=== PATIENT | female | born 1985 ===

== ENCOUNTER 2017-12-03 10:55 | Emergency (ER) | payer SELFPAY ==
[2017-12-03 11:14] VITALS: BP 129/85
--- NOTE | 2017-12-03 12:00 | UC ---
Skin Complaint HPI - HPI Summary HPI Summary: She is a 32-year-old female who arrived here from [facility] 3 weeks ago. She will be at [facility] for 6 months. She states that [place] left [place]. She has had a difficult time making the transition here. She states that she is terrified of trees. [place] [address] He has had nightmares about trees and has not been sleeping well. Her arrival here she has had a constant band like headache. She has had no photophobia. Had no nausea or vomiting. The headache waxes and wanes but does not go away completely. He is not taken any medication for her headache. She has had a long history of acne but it has worsened during her 3 weeks here. Also since here she has noticed dramatic hair loss. She states that over the past 2 years she has had a 30 pound weight gain. She had her thyroid function tested about a year and a half ago. She reports it was normal. She was seen by corn shucker in [facility] for abnormal periods. Diagnosed with polycystic ovarian syndrome. At one point she did take metformin. - History of Current Complaint Chief Complaint: UCGeneralIllness Time Seen by Provider: 12/03/17 11:32 Stated Complaint: HAIR AND ACNE COMPLAINT Hx Obtained From: Patient Hx Last Menstrual Period: 11/02/17 Onset/Duration: Gradual Onset, Lasting Weeks Timing: Constant Onset Severity: Mild Current Severity: Mild Pain Intensity: 4 - BUTLER Pain Scale Used: 0-10 Numeric Location: Face Aggravating Factor(s): Nothing Alleviating Factor(s): Nothing - Allergy/Home Medications Allergies/Adverse Reactions: Allergies Allergy/AdvReac Type Severity Reaction Status Date / Time No Known Allergies Allergy Verified 12/03/17 12:03 Review of Systems Constitutional: Other - wt gain Skin: Other - acne Eyes: Other - trouble focus at times ENT: Negative Respiratory: Negative Cardiovascular: Negative Gastrointestinal: Negative Genitourinary: Negative Motor: Negative Neurovascular: Negative Musculoskeletal: Negative Neurological: Headache Is Patient Immunocompromised?: No All Other Systems Reviewed And Are Negative: Yes PMH/Surg Hx/FS Hx/Imm Hx Previously Healthy: Yes Other GI/ History: PCOS - Surgical History Surgical History: None - Family History Known Family History: Positive: Hypertension - Social History Alcohol Use: None Substance Use Type: None Smoking Status (MU): Never Smoked Tobacco Physical Exam Triage Information Reviewed: Yes Appearance: Well-Appearing, No Pain Distress, Well-Nourished Vital Signs: Initial Vital Signs Temp 99 F 12/03/17 11:11 Pulse 81 12/03/17 11:11 Resp 18 12/03/17 11:11 BP 129/85 12/03/17 11:11 Pulse Ox 100 12/03/17 11:11 Vital Signs Reviewed: Yes Eye Exam: Normal Eyes: Positive: Conjunctiva Clear, Other: - eomi/perrl, fundi benign, no proptosis ENT Exam: Normal ENT: Positive: Hearing grossly normal. Negative: Nasal congestion, Nasal drainage, Trismus, Muffled voice, Sinus tenderness Dental Exam: Normal Neck: Positive: Supple, Nontender, No Lymphadenopathy, Other: - ? thyromegaly Respiratory: Positive: Lungs clear, Normal breath sounds, No respiratory distress Cardiovascular: Positive: RRR, No Murmur, Pulses Normal Musculoskeletal: Positive: ROM Intact, No Edema Neurological: Positive: Alert, Other: - cn2-12 intact, strenght 5/5, +1 knee jerks, normal gait Psychological Exam: Normal Skin Exam: Other - few papule on face/no pustule, very thin hair katrina vtx, hair gooden Course/Dx - Diagnoses Provider Diagnoses: PCOS. hair loss/wt gain and acne of uncertain cause Discharge - Sign-Out/Discharge Documenting (check all that apply): Discharge/Admit/Transfer - Discharge Plan Condition: Stable Disposition: HOME Prescriptions: Ibuprofen TAB* [Motrin TAB*] 600 mg PO QID #40 tab Patient Education Materials: Tension Headache (ED), Polycystic Ovarian Syndrome (ED) Referrals: [facility] [place] [facility]FERRAL [Outside] (call this number for evaluation of hairloss/ acne and wt gain) Heriberto Tobar MD [Medical Doctor] - As Soon As Possible (for evaluation and treatment of polycystic ovariona syndrome) Additional Instructions: recheck for new or worsening symptoms I think you need blood work to evaluate your symptoms Please call the number to get up local MDs to evaluate you - Billing Disposition and Condition Condition: STABLE Disposition: Home
== END 2017-12-03 12:11 | disposition home or self-care (01) ==
LOC: UCEAST 10:55
DX: L65.9 Nonscarring hair loss, unspecified (principal); E28.2 Polycystic ovarian syndrome; R63.5 Abnormal weight gain; L70.9 Acne, unspecified
CPT/HCPCS: 99202; G0463

== ENCOUNTER 2018-02-19 10:33 | Emergency (ER) | payer BC, MEDICAID ==
[2018-02-19 11:04] VITALS: BP 119/75
--- NOTE | 2018-02-19 11:38 | UC ---
HPI Febrile Illness - HPI Summary HPI Summary: This patient is a 32 year old F presenting to [facility] with a chief complaint of an intermittent subjective fever for that last 2 weeks. She states that she believes it is higher at night and determines that she is febrile by touching her skin, because she does not have a thermometer. The patient rates the pain 0/ 10 in severity. Patient reports fatigue, nausea, constipation, rectal bleeding after straining to have BMs. Pt denies dysuria, hematuria, adominal pain. Patient denies blood in the urine, vomiting, ear pain, and nasal congestion.. She has been taking Tylenol one pill twice a day for the fever but does not believe it is helping. No antipyretic tday. She is also taking milk of magnesia for constipation with relief of substance, but states once she stops taking it the constipation returns. Pt is here for 6 months - state does not have a PCP. Pt states her diet as been different since she has been there, drink less water , and attributes her constipation to this. last BM this morning after taking laxative yesterday. Patients medications reviewed this visit. NDKA - History of Current Complaint Chief Complaint: UCGeneralIllness Time Seen by Provider: 02/19/18 11:25 Hx Obtained From: Patient Hx Last Menstrual Period: states has been abnormal recently 01/26/18 Onset/Duration: Started Weeks Ago - 2, Still Present Timing: Intermittent Initial Severity: Mild Current Severity: None Pain Intensity: 0 Pain Scale Used: 0-10 Numeric Associated Signs and Symptoms: Other: - fatigue, photophobia, nausea, constipation, rectal bleeding after straining to have BMs, dysuria, rectal rash , and trouble seeing at a distan - Allergy/Home Medications Allergies/Adverse Reactions: Allergies Allergy/AdvReac Type Severity Reaction Status Date / Time No Known Allergies Allergy Verified 02/19/18 10:52 Home Medications: Home Medications Acetaminophen [Acetaminophen Extra Strength] 500 mg PO BID 02/19/18 [History Confirmed 02/19/18] Magnesium Hydroxide LIQ* [Milk of Magnesia LIQ*] 30 ml PO WEEKLY 02/19/18 [ History Confirmed 02/19/18] metFORMIN* [Glucophage 500 MG TAB *] 500 mg PO DAILY 02/19/18 [History] PMH/Surg Hx/FS Hx/Imm Hx Previously Healthy: Yes GI/ History: Other Other GI/ History: PCOS Neurological History: Other Other Neurological History: Chronic back pain - Surgical History Surgical History: None - Family History Known Family History: Positive: Hypertension - Social History Occupation: Student Alcohol Use: None Substance Use Type: None Smoking Status (MU): Never Smoked Tobacco Review of Systems Constitutional: Fever - tactile, Fatigue Skin: Rash - rectal Eyes: Other Gastrointestinal: Nausea, Other - constipation and rectal bleeding after straining to have BMs on toilet tissue only Genitourinary: Negative All Other Systems Reviewed And Are Negative: Yes Physical Exam - Summary Physical Exam Summary: Vital Signs Reviewed: Yes A+Ox3, no distress Eyes: Conjunctiva Clear, LAZARUS. EOM intact and full ENT: Hearing grossly normal TM x 2 clear, mmoist, uvula midline, no exudate, no erythema Neck: Positive: Supple Respiratory: Positive: No respiratory distress, No accessory muscle use + CTA throughout no w/r Cardiovascular: RRR nl s1, s2 no m/r CBT <2 sec abd soft + BS nt/nd no guarding, no distension no CVA Musculoskeletal Exam: ARRINGTON x 4 without difficulty Strength Intact, ROM Intact Neurological: Positive: Alert, + sensation throughout Psychological: Positive: Normal Response To Family Skin: Positive: no rash, no ecchymosis Triage Information Reviewed: Yes Vital Signs: Initial Vital Signs Temp 98.7 F 02/19/18 10:57 Pulse 83 02/19/18 10:57 Resp 18 02/19/18 10:57 BP 119/75 02/19/18 10:57 Pulse Ox 100 02/19/18 10:57 Course/Dx - Course Course Of Treatment: Pt reports tactile fever intermittent x 2 weeks. no other physical complaints other than constipation improved with laxative. VSS. no antipyretic taken. pt well appearing. will check labs. start colace. increase fluids. urine nonconcerning. recommend f/u with [facility] or ED if abd pain, increase rectal bleeding or any other concerns. pt comfortable and in agreement with plan - Diagnoses Clinic Provider Diagnoses: tactile fever. constipation Discharge - Sign-Out/Discharge Documenting (check all that apply): Patient Departure All imaging exams completed and their final reports reviewed: No Studies - Discharge Plan Condition: Stable Disposition: HOME Prescriptions: Docusate CAP* [Colace Cap*] 100 mg PO DAILY #30 cap Patient Education Materials: Constipation (ED), High Fiber Diet (ED) Referrals: [facility] - Jonny TORRES [Medical Doctor] - Additional Instructions: - Stay well hydrated. Drink plenty of nonalcoholic, non-caffeinated beverages - Eat and drink regular healthy meals - It is recommended you take Colace 100mg daily for constipation. If your stools become too loose, okay to take every other day - The bloodwork you had drawn today will take 1-2 days to come back. If any of your results need further attention, you will receive a call from a care application development team lead - You did not have a fever at urgent care today. Your exam was non- concerning.No area of infection was noted. If you have fevers or other concerns it is recommended you go to the emergency for further evaluation - It is recommended you contact the [facility] to schedule a follow-up appointment. - Billing Disposition and Condition Condition: STABLE Disposition: Home - Attestation Statements Document Initiated by Isacibe: Yes Documenting Scribe: Naveen Gibson Provider For Whom Vijie is Documenting (Include Credential): Kamla Rivera MD Scribe Attestation: Naveen Govea , scribed for Kamla Rivera MD on 02/19/18 at 2102. Scribe Documentation Reviewed: Yes Provider Attestation: The documentation as recorded by the Naveen escobar accurately reflects the service I personally performed and the decisions made by me, Kamla Rivera MD
[2018-02-19 16:21] LABS: ABS Basophils 0 10^3/ul (0-0.2); ABS Eosinophils 0.5 10^3/ul (0-0.6); ABS Lymphocytes 2.3 10^3/ul (1.0-4.8); ABS Monocytes 0.5 10^3/ul (0-0.8); ABS Neutrophils 5.4 10^3/ul (1.5-7.7); ABS Nucleated RBC 0 10^3/ul; Eosinophil % 5.3 % (0-6); Hematocrit 42 % (35-47); Hemoglobin 14.8 g/dl (12.0-16.0); Lymphocyte % 26.1 % (25-47); Mean Corpuscular HGB Conc 35 g/dl (31-36); Mean Corpuscular Hemoglobin 29 pg (27-31); Mean Corpuscular Volume 84 fL (80-97); Mean Platelet Volume 9.5 um3 (7.4-10.4); Nucleated Red Blood Cells % 0.1; Platelet Count 230 10^3/ul (150-450); Red Blood Count 5.07 10^6/ul (4.00-5.40); Red Cell Distribution Width 13 % (10.5-15); White Blood Count 8.6 10^3/ul (3.5-10.8)
[2018-02-19 16:29] LABS: EGFR Non-African American 101.6 (>60)
== END 2018-02-19 13:17 | disposition home or self-care (01) ==
LOC: UCEAST 10:33
DX: R50.9 Fever, unspecified (principal); K59.00 Constipation, unspecified
CPT/HCPCS: 36415; 80053; 81003; 83735; 84443; 85025; 86308; 87086; 99212; G0463